=== PATIENT | female | born 1970 | race Caucasian/White ===

== ENCOUNTER 2017-08-20 10:28 | Day surgery (SDC) | payer BC ==
[~2017-08-20] VITALS: Ht 165.1 cm; Wt 69.5 kg
[2017-08-20] MEDS ORDERED: LACTATED RINGERS 1,000 ML IV SCH (11:18)
[2017-08-20] MEDS ORDERED: HYDR-3240 PO (11:20)
[2017-08-20] MEDS ORDERED: FLUO10CA13 PO (11:20)
[2017-08-20] MEDS ORDERED: BUPR200T2 PO (11:20)
[2017-08-20] MEDS ORDERED: ONDA4TAB7 PO (11:20)
[2017-08-20 11:22] VITALS: BP 135/83
[2017-08-20] MEDS ORDERED: HYDROmorphone 2 MG/ML, 1ML ONE (11:40)
[2017-08-20] MEDS ORDERED: HYDROmorphone 2 MG/ML, 1ML IVPush ONE (12:00)
[2017-08-20] MEDS ORDERED: FENTANYL PF 100 MCG/2ML ONE (12:22)
[2017-08-20] MEDS ORDERED: LIDOCAINE GEL 2%, 5ML ONE (12:23)
[2017-08-20] MEDS ORDERED: MIDAZOLAM 1 MG/ML, 2ML ONE ×2 (12:23→14:45)
[2017-08-20] MEDS ORDERED: SUCCINYLCHOLINE 20 MG/ML, 10ML ONE (12:24)
[2017-08-20] MEDS ORDERED: PROPOFOL 10 MG/ML, 20ML ONE (12:24)
[2017-08-20] MEDS ORDERED: DEXAMETHASONE 4 MG/ML, 1ML ONE ×2 (12:24)
[2017-08-20] MEDS ORDERED: ONDANSETRON 2MG/ML, 2ML ONE ×2 (12:24)
[2017-08-20] MEDS ORDERED: CEFAZOLIN 1,000 MG ONE ×2 (12:24)
[2017-08-20] MEDS ORDERED: NEOSPORIN OINT, 15GM ONE (12:43)
[2017-08-20] MEDS ORDERED: ROCURONIUM 10 MG/ML ONE (12:57)
[2017-08-20] MEDS ORDERED: KETOROLAC 30 MG/1 ML ONE (12:57)
[2017-08-20] MEDS ORDERED: PHENYLEPHRINE 10 MG/ML ONE (12:57)
[2017-08-20] MEDS ORDERED: ACETAMINOPHEN 325 MG TABLET PO PRN (13:00)
[2017-08-20] MEDS ORDERED: HYDROmorphone 1 MG/ML, 1ML IV PRN (13:00)
[2017-08-20] MEDS ORDERED: MEPERIDINE/PF 25MG/0.5ML IVPush PRN (13:00)
[2017-08-20] MEDS ORDERED: LABETALOL 5MG/ML, 20ML IV PRN (13:00)
[2017-08-20] MEDS ORDERED: ALBUTEROL SULFATE 2.5 MG/3 ML NPPB PRN (13:00)
[2017-08-20] MEDS ORDERED: OXYcodone 5 MG/5 ML ORAL.SOL UDC PO PRN (13:00)
[2017-08-20] MEDS ORDERED: hydrALAzine 20 MG/ML, 1ML IV PRN (13:00)
[2017-08-20] MEDS ORDERED: ONDANSETRON 2MG/ML, 2ML IVPush PRN (13:00)
[2017-08-20] MEDS ORDERED: FENTANYL PF 100 MCG/2ML IV PRN (13:00)
[2017-08-20] MEDS ORDERED: MIDAZOLAM 1 MG/ML, 2ML IV PRN (13:00)
[2017-08-20] MEDS ORDERED: PROMETHAZINE 25 MG/ML, 1ML IV PRN (13:00)
[2017-08-20] MEDS ORDERED: HYDROcodone/APAP 7.5-325MG/15ML UDC PO PRN (14:00)
[2017-08-20] MEDS ORDERED: HYDROcodone/APAP 7.5-325MG/15ML UDC ONE (14:02)
== END 2017-08-20 18:25 | disposition home or self-care (01) ==
LOC: OUT 10:28
PROVIDERS: ATTEND Orthopaedic Surgery
DX: S82.852A Displaced trimalleolar fracture of left lower leg, initial encounter for closed fracture (principal); F41.9 Anxiety disorder, unspecified; X50.1XXA Overexertion from prolonged static or awkward postures, initial encounter; Y93.89 Activity, other specified; Y92.89 Other specified places as the place of occurrence of the external cause; Y99.8 Other external cause status
CPT/HCPCS: 27822; 73600; 76001; C1713; J0330; J0690; J1100; J1170; J1885; J2250; J2370; J2405; J2704; J3010; J7120